=== PATIENT | female | born 1975 | race Hispanic/Latino ===

== ENCOUNTER 2018-01-11 14:59 | Emergency (ER) | payer BC ==
[2018-01-11 15:11] VITALS: BP 117/79; RESP 16; TEMP 98.4; O2SAT 99
--- NOTE | 2018-01-11 16:10 | ED PDOC ---
HPI: General Adult Time Seen by Provider: 01/11/18 15:21 Chief Complaint (Nursing): Chest Pain Chief Complaint (Provider): SOB History Per: Patient History/Exam Limitations: no limitations Current Symptoms Are (Timing): Still Present Recently: Treated By A Physician Additional Complaint(s): 42yo female on progesterone for embryo implant x2 days, presents w SOB and chest tightness along with R flank pain when she takes a deep breath, all of which started last night. Denies syncope, orthopnea, leg pain or edema.States has been through 4 rounds of embryo implantation, no prior side effects. Under care of [facility], Dr Sebastian [phone] Past Medical History Reviewed: Historical Data Vital Signs: Last Vital Signs Temp 98.4 F 01/11/18 15:07 Pulse 81 01/11/18 18:32 Resp 16 01/11/18 15:07 BP 117/79 01/11/18 15:07 Pulse Ox 99 01/11/18 18:32 - Medical History PMH: No Chronic Diseases, Hypothyroidism - Surgical History Surgical History: Cholecystectomy Other surgeries: fertility - Family History Family History: States: Unknown Family Hx - Social History Current smoker - smoking cessation education provided: No - Immunization History Hx Tetanus Toxoid Vaccination: No Hx Influenza Vaccination: No Hx Pneumococcal Vaccination: No - Allergies Allergies/Adverse Reactions: Allergies Allergy/AdvReac Type Severity Reaction Status Date / Time No Known Allergies Allergy Verified 01/11/18 15:07 Review of Systems Constitutional: Negative for: Fever, Chills Cardiovascular: Positive for: Chest Pain, Paroxysmal Noc. Dyspnea. Negative for : Palpitations Respiratory: Positive for: Shortness of Breath. Negative for: Cough Gastrointestinal: Negative for: Nausea, Abdominal Pain Genitourinary Female: Negative for: Dysuria, Vaginal Bleeding Musculoskeletal: Positive for: Back Pain. Negative for: Neck Pain, Arm Pain Skin: Negative for: Rash, Lesions, Jaundice Neurological: Negative for: Weakness, Numbness, Seizures, Altered Mental Status , Headache Psych: Negative for: Suicidal ideation Physical Exam - Reviewed Nursing Documentation Reviewed: Yes Vital Signs Reviewed: Yes - Physical Exam Appears: Positive for: Well, Non-toxic, No Acute Distress Head Exam: Positive for: ATRAUMATIC, NORMAL INSPECTION, NORMOCEPHALIC Skin: Positive for: Normal Color, Warm, DRY Eye Exam: Positive for: EOMI, Normal appearance, PERRL ENT: Positive for: Normal ENT Inspection Neck: Positive for: Normal, Painless ROM Cardiovascular/Chest: Positive for: Regular Rate, Rhythm, Tachycardia. Negative for: Irregularly Irregular Respiratory: Positive for: CNT, Normal Breath Sounds Gastrointestinal/Abdominal: Positive for: Normal Exam, Soft. Negative for: Tenderness, Guarding Back: Positive for: Normal Inspection. Negative for: L CVA Tenderness, R CVA Tenderness Extremity: Positive for: Normal ROM. Negative for: Tenderness, Swelling Neurologic/Psych: Positive for: Alert, Oriented. Negative for: Motor/Sensory Deficits - Laboratory Results Result Diagrams: 01/11/18 16:07 01/11/18 16:07 - ECG ECG: Positive for: Interpreted By Me ECG Rhythm: Positive for: Normal QRS, Normal ST Segment, Sinus Rhythm Rate: 81 O2 Sat by Pulse Oximetry: 99 Pulse Ox Interpretation: Normal - Radiology X-Ray: Interpreted by Me X-Ray Interpretation: No Acute Disease - CT Scan/US US duplex LE Other Rad Studies (CT/US): Read By Radiologist (negative) Medical Decision Making Medical Decision Making: When examining patient, resting HR 115. No hypoxia. Given on hormonal therapy concern for thromboembolism, will obtain bloodwork, US duplex b/l LE and DDimer although value likely diminished given poss early and on hormonal therapy as not low risk. Check CXR r/o pneumothorax or pneumonia, although less likely. Explained early considerations and diagnostic considerations. labs reviewed clinically unremarkable other than DDimer elev 404 US duplex BL LE negative for DVT per radiologist Given on hormonal therapy, has +risk factors for PE, risks/benefits of CTA chest discussed w patient, she wishes to proceed with CTA chest. Also discussed with her infertility team Dr Wagner covering Dr Escobar at [facility], they agree with need to scan and r/o PE, benefits outweigh risks and Dr Wagner states known radiation from CTA acceptable to potential early . Disposition - Clinical Impression Clinical Impression: Chest pain - Patient ED Disposition Is Patient to be Admitted: Transfer of Care - Disposition Disposition: Transfer of Care Disposition Time: 18:50 Condition: FAIR Forms: [facility] (Ukrainian) Patient Signed Over To: Cholo Obregon Handoff Comments: pending CTA chest and dispo
[2018-01-11 16:12] LABS: BASO # 0.1 K/uL (0.0-0.2); BASO % 0.7 % (0.0-2.0); EOS # 0.1 K/uL (0.0-0.7); EOS % 0.8 % (0.0-4.0); HEMOGLOBIN 12.4 g/dL (12.0-16.0); LYMPH # 1.9 K/uL (1.0-4.3); LYMPH % 24.2 % (20.0-40.0); MEAN CELL VOLUME 86.5 fl (81.0-99.0); MEAN CORPUSCULAR HEMOGLOBIN 28.4 pg (27.0-31.0); MEAN CORPUSCULAR HGB CONC 32.8 g/dL (33.0-37.0); MEAN PLATELET VOLUME 9.6 fl (7.2-11.7); MONO # 0.6 K/uL (0.0-0.8); MONO % 8.2 % (0.0-10.0); NEUT # 5.1 K/uL (1.8-7.0); NEUT % 66.1 % (50.0-75.0); RBC 4.37 Mil/uL (3.80-5.20); RED CELL DISTRIBUTION WIDTH 12.8 % (11.5-14.5); WHITE BLOOD COUNT 7.8 K/uL (4.8-10.8)
[2018-01-11 16:14] VITALS: PULSE 81
[2018-01-11 16:23] LABS: URINE BILIRUBIN NEGATIVE (NEGATIVE); URINE BLOOD NEGATIVE (NEGATIVE); URINE CLARITY CLEAR (Clear); URINE COLOR STRAW (YELLOW); URINE GLUCOSE (UA) NEG (Normal); URINE LEUKOCYTE ESTERASE NEG Leu/uL (Negative); URINE PROTEIN NEGATIVE (NEGATIVE); URINE UROBILINOGEN 0.2-1.0 mg/dL (0.2-1.0)
[2018-01-11 16:26] LABS: ALB/GLOB RATIO 1.3 (1.0-2.1); ALBUMIN 4.4 g/dL (3.5-5.0); ALT/SGPT 39 U/L (9-52); AST/SGOT 34 U/L (14-36); BLOOD UREA NITROGEN 16 mg/dl (7-17); CALCIUM 9.6 mg/dL (8.4-10.2); GFR AFRICAN-AMERICAN > 60; GFR NON-AFRICAN AMERICAN > 60
[2018-01-11 16:34] LABS: PROTHROMBIN TIME 11.2 Seconds (9.8-13.1)
[2018-01-11 16:35] LABS: PARTIAL THROMBOPLASTIN TIME 29.1 Seconds (25.6-37.1)
--- NOTE | 2018-01-11 16:54 | RAD ---
PROCEDURE: CHEST RADIOGRAPH, 1 VIEW HISTORY: SOB COMPARISON: None available. FINDINGS: LUNGS: Clear. PLEURA: No pneumothorax or pleural fluid seen. CARDIOVASCULAR: Normal. OSSEOUS STRUCTURES: No significant abnormalities. VISUALIZED UPPER ABDOMEN: Normal. OTHER FINDINGS: None. IMPRESSION: No active disease.
[2018-01-11 16:56] LABS: B-TYPE NATRIURETIC PEPTIDE 42.3 pg/ml (0-450)
--- NOTE | 2018-01-11 17:16 | US ---
PROCEDURE: Bilateral lower extremity venous duplex Doppler. HISTORY: r/o DVT COMPARISON: None available. TECHNIQUE: Bilateral common femoral, superficial femoral, popliteal and posterior tibial veins were evaluated. Flow was assessed with color Doppler, compressibility, assessment of phasic flow and augmentation response. FINDINGS: COMMON FEMORAL VEIN: Right CFV: Unremarkable. Left CFV: Unremarkable. SUPERFICIAL FEMORAL VEIN: Right SFV: Unremarkable. Left SFV: Unremarkable. POPLITEAL VEIN: Right Popliteal: Unremarkable. Left Popliteal: Unremarkable. POSTERIOR TIBIAL VEIN: Right PTV: Unremarkable. Left PTV: Unremarkable. OTHER FINDINGS: None. IMPRESSION: No sonographic evidence of deep venous thrombosis bilaterally.
[2018-01-11] MEDS ORDERED: Iodixanol 320 MG/ML 100 ML BOTTLE IV ONE (18:51)
[2018-01-11] MEDS ORDERED: Sodium Chloride 0.9% 100 ML ONE (18:51)
--- NOTE | 2018-01-11 20:13 | ED PDOC ---
"- Laboratory Results Result Diagrams: 01/11/18 16:07 01/11/18 16:07 - ECG O2 Sat by Pulse Oximetry: 99 Pulse Ox Interpretation: Normal Medical Decision Making Medical Decision MakinPM Patient endorsed to me by Dr. Srivastava pending CTA. Patient seen at bedside appearing well with improved vital signs. 845PM EXAM: CT Angiography Chest With Intravenous Contrast EXAM DATE/TIME: 01/11/2018 6:29 PM CLINICAL HISTORY: 42 years old, female; Pain; Chest pain; On breathing; Patient HX: SOB; Additional info: Chest pain, SOB, on hormonal therapy for ivf TECHNIQUE: Axial computed tomographic angiography images of the chest with intravenous contrast using pulmonary embolism protocol. All CT scans at this facility use one or more dose reduction techniques, viz.: automated exposure control; ma/kV adjustment per patient size (including targeted exams where dose is matched to indication; i.e. head); or iterative reconstruction technique. MIP reconstructed images were created and reviewed. Coronal and sagittal reformatted images were created and reviewed. CONTRAST: 75 mL of VISIPAQUE 320 administered intravenously. COMPARISON: No relevant prior studies available. FINDINGS: LIMITATIONS: Mild respiratory motion artifact. PULMONARY ARTERIES: Contrast opacification of the pulmonary arteries is adequate , and there are no filling defects seen to suggest pulmonary embolism. AORTA: Exam is nondiagnostic for the detection of aortic dissection because of suboptimal enhancement of the aorta. No evidence of thoracic aortic aneurysm. LUNGS: Lungs appear clear, without evidence of significant focal consolidation/ infiltrate or of diffuse pulmonary vascular congestion.. PLEURAL SPACE: No pneumothorax or pleural effusions seen. HEART: No evidence of significant pericardial effusion. BONES/JOINTS: No acute bony abnormality identified. SOFT TISSUES: No acute abnormality of the visualized soft tissues seen. LYMPH NODES: No evidence of diffuse lymphadenopathy. IMPRESSION: ABAD DELGADO | Final Radiology Report CONFIDENTIALITY STATEMENT This report is intended only for use by the referring physician, and only in accordance with law. If you received this in error, call [phone]. Page 2 of 2 - No evidence of pulmonary embolism or other significant acute abnormality in the chest. - See above for remaining findings. Patient feeling much better, no longer having difficulty breathing, 100% on RA, 78 HR. Patient has followup on Monday. Advised to followup with doctor and return to ER for any worsening breathing or concerning symptoms. Disposition - Clinical Impression Clinical Impression: Chest pain - POA Present On Arrival: None - Disposition Disposition: Routine/Home Disposition Time: 20:45 Condition: IMPROVED Instructions: Shortness of Breath (Dyspnea) (DC) Forms: [facility] (Arabic)"
--- NOTE | 2018-01-11 20:37 | CT ---
EXAM: CT Angiography Chest With Intravenous Contrast EXAM DATE/TIME: 01/11/2018 6:29 PM CLINICAL HISTORY: 42 years old, female; Pain; Chest pain; On breathing; Patient HX: SOB; Additional info: Chest pain, SOB, on hormonal therapy for ivf TECHNIQUE: Axial computed tomographic angiography images of the chest with intravenous contrast using pulmonary embolism protocol. All CT scans at this facility use one or more dose reduction techniques, viz.: automated exposure control; ma/kV adjustment per patient size (including targeted exams where dose is matched to indication; i.e. head); or iterative reconstruction technique. MIP reconstructed images were created and reviewed. Coronal and sagittal reformatted images were created and reviewed. CONTRAST: 75 mL of VISIPAQUE 320 administered intravenously. COMPARISON: No relevant prior studies available. FINDINGS: LIMITATIONS: Mild respiratory motion artifact. PULMONARY ARTERIES: Contrast opacification of the pulmonary arteries is adequate, and there are no filling defects seen to suggest pulmonary embolism. AORTA: Exam is nondiagnostic for the detection of aortic dissection because of suboptimal enhancement of the aorta. No evidence of thoracic aortic aneurysm. LUNGS: Lungs appear clear, without evidence of significant focal consolidation/infiltrate or of diffuse pulmonary vascular congestion.. PLEURAL SPACE: No pneumothorax or pleural effusions seen. HEART: No evidence of significant pericardial effusion. BONES/JOINTS: No acute bony abnormality identified. SOFT TISSUES: No acute abnormality of the visualized soft tissues seen. LYMPH NODES: No evidence of diffuse lymphadenopathy. IMPRESSION: - No evidence of pulmonary embolism or other significant acute abnormality in the chest. - See above for remaining findings.
--- NOTE | 2018-01-12 10:36 | CARD ---
APPROVED REPORT EKG Measurement Heart [id number] PA [id number] <Conclusion> Normal sinus rhythm Normal ECG
== END 2018-01-11 21:15 | disposition home or self-care (01) ==
LOC: H.ER 14:59 → H.ERHOLD 16:22 → UNDOADMIN 16:22 → H.ER 21:15
DX: R07.89 Other chest pain (principal)
CPT/HCPCS: 71045; 71275; 80053; 81003; 81025; 83880; 84484; 85025; 85378; 85610; 85730; 93005; 93970; 99284; Q9967